=== PATIENT | female | born 1945 | race Caucasian/White ===

== ENCOUNTER 2017-06-07 23:41 | Inpatient (IN) ==
[2017-06-08 00:25] LABS: Basophils # 0.1 K/mcL (0.0-0.2); Basophils % 0.7 %; Eosinophils # 0.2 K/mcL (0.0-0.6); Eosinophils % 2.2 %; Hematocrit 41.6 % (35.3-44.9); Hemoglobin 13.6 g/dL (11.5-15.4); Immature Granulocytes % 0.3 % (0-4); Lymphocytes # 2.2 K/mcL (0.6-4.6); Lymphocytes % 20.5 %; Mean Corpuscular HGB Conc 32.7 g/dL (31.6-35.5); Mean Corpuscular Hemoglobin 29.4 pg (28.0-33.3); Mean Corpuscular Volume 89.8 fL (83.0-100.0); Monocytes # 0.9 K/mcL (0.0-1.3); Monocytes % 8.1 %; Neutrophils # 7.2 K/mcL (1.6-8.9); Platelet Count 250 K/mcL (140-400); Red Blood Count 4.63 M/mcL (3.82-4.97); Red Cell Distribution Width 13.8 % (11.5-14.5); Segmented Neutrophils % 68.2 %
[2017-06-08] MEDS: Nitroglycerin 0.4 MG TAB.SUBL SL PRN ×2 (00:25→00:35)
[2017-06-08] MEDS ORDERED: 0.9 % Sodium Chloride 1,000 ML IVC ONE (00:41)
[2017-06-08 00:50] LABS: Calcium 9.8 mg/dL (8.6-10.3); Potassium 3.7 mEq/L (3.5-5.1)
--- NOTE | 2017-06-08 01:39 | Emergency Department Note ---
START Narrative - START START: I examined this patient and my medical decision-making was reviewed with the Resident Physician. I agree with the documented findings, disposition and treatment plan as described except to the extent set forth below. 72 year old female presents to the ED with complaints of chest pain that starts in her midsternal area and radiates direcetly into her back and that she became diaphoretic with the pain and nauseated. Patient will be evalauted with labs, CTA chest to rule out aortic dissection EKG/CXR and lipase
[2017-06-08 02:09] LABS: Albumin 4.3 g/dL (3.5-5.7); Albumin/Globulin Ratio 1.6 (1.1-2.2); Bilirubin,Direct 0.1 mg/dL (0.0-0.2); Bilirubin,Indirect 0.3 mg/dL (0.0-1.2); Bilirubin,Total 0.4 mg/dL (0.3-1.0); Globulin 2.7 g/dL (2.4-3.5)
--- NOTE | 2017-06-08 02:44 | Emergency Department Note ---
Disposition Clinical Impression: Multifocal pneumonia Chest pain Qualifiers: Chest pain type: unspecified Qualified Code(s): R07.9 - Chest pain, unspecified Disposition: Admitted As Inpatient Condition: Fair Referrals: Genaro Best MD [Primary Care Provider] - Forms: ED Satisfaction Letter Time of Disposition: 03:20 Chest Pain HPI - General Chief Complaint: ED Chest Pain Stated Complaint: CP Time Seen by Provider: 06/08/17 00:04 Source: family Mode of arrival: ambulatory Limitations: no limitations Vital Signs Reviewed: Yes Nursing Notes Reviewed: Yes - History of Present Illness HPI Narrative: Patient is a 72-year-old female who presents to [facility] ED with a chief complaint of chest pain. States her symptoms started around 10: 30 this evening when she was about to lie down. States it was sharp stabbing in nature and went into her back. Admits to nausea, no vomiting. No recent fevers or chills. No cough or cold. No difficulty breathing, abdominal pain, problems with urination or bowel movements. States anywhere she pushes on her abdomen causes pain to radiate into her chest. No prior cardiac history. No history of stress tests or cardiac catheterization. Past medical history significant for hypertension. Pt complaint: chest pain Onset (ago): hour(s) Duration: constant Onset: during rest Pain Location: substernal Severity: severe Severity scale (1-10): 6 Quality: sharp Pain Radiation: none Improves with: nothing Worsens with: nothing Associated symptoms: Reports: nausea. Denies: vomiting, diaphoresis, dyspnea, fever, cough Treatments prior to arrival chest pain: none - Related Data Home Medications Medication Instructions Recorded Confirmed B Complex 1 tab PO DAILY 06/08/17 06/08/17 Calcium Crb,Cit/D3/Min34/Zuleyka 1 tab PO DAILY 06/08/17 06/08/17 [Citracal + Bone Density Tablet] Famotidine [Pepcid] 40 mg PO DAILY 06/08/17 06/08/17 Levothyroxine [Synthroid] 50 mcg PO 0630 06/08/17 06/08/17 Metoprolol [Lopressor] 1 tab PO DAILY 06/08/17 06/08/17 Pravastatin Sodium [Pravachol] 20 mg PO HS 06/08/17 06/08/17 Preservision Areds 2 Softgel 1 tab PO DAILY 06/08/17 06/08/17 Valsartan/Hydrochlorothiazide 25 - 320 mg PO DAILY 06/08/17 06/08/17 [Diovan Hct 160-25 mg Tablet] Vitamin D3 1 tab PO DAILY 06/08/17 06/08/17 Allergies Allergy/AdvReac Type Severity Reaction Status Date / Time ibuprofen [From Motrin] Allergy Hives Verified 06/07/17 23:49 All systems ED: reviewed and negative except as stated. Chest Pain PMH - Past Medical History Medical history: Reports: cancer, GERD, hyperlipidemia, hypertension, osteoporosis, thyroid disease Surgical history: Reports: other (Tonsillectomy) Psychiatric history: Reports: no psych history - Social History Smoking Status: Never smoker Alcohol use: Reports: none Drug use: Reports: none Physical Exam - General Limitations: no limitations General appearance: alert, in no apparent distress - Head Head exam: atraumatic, normocephalic, normal inspection - Eye Eye exam: Present: normal appearance, EOMI - ENT ENT exam: normal exam, normal oropharynx, mucous membranes moist - Neck Neck exam: Present: normal inspection, full ROM, trachea midline - Chest Chest inspection: Present: normal inspection, symmetric chest wall rise - Respiratory Respiratory exam: Present: normal lung sounds bilaterally - Cardiovascular Cardiovascular exam: Present: regular rate, normal rhythm, normal heart sounds - Abdominal Exam Abdominal exam: Present: soft, Non-Tender. Absent: tenderness, distention, guarding, rebound, rigidity - Extremities Exam Extremities exam: Present: normal inspection, full ROM. Absent: tenderness, pedal edema - Back Exam Back exam: Present: normal inspection, full ROM. Absent: tenderness - Neurological Exam Neurological exam: Present: alert, oriented X3 - Psychiatric Psychiatric exam: Present: normal affect, normal mood - Skin Skin exam: Present: warm, dry, intact, normal color Course Course Narrative: Patient seen and examined. Chest pain since earlier today. Cardiopulmonary workup initiated. Due to the severe nature of her pain, we will go ahead and do a CTA of the chest abdomen and pelvis to rule out aortic dissection. - Reevaluation(s) Reevaluation #1: CTA negative for any acute dissection. It does show multifocal pneumonia. We will go ahead and treat with Levaquin. We will admit for chest pain workup. I discussed with hospitalist Dr. Reynaga who has accepted patient for admission. Time: 03:19 Vital Signs Temperature 98.1 F 06/07/17 23:47 Pulse Rate 98 06/07/17 23:47 Respiratory Rate 16 06/07/17 23:47 Blood Pressure 170/94 06/07/17 23:47 O2 Sat by Pulse Oximetry 96 06/07/17 23:47 Temperature 98.1 F 06/07/17 23:47 Pulse Rate 87 06/08/17 01:42 Respiratory Rate 20 06/08/17 01:42 Blood Pressure 142/77 06/08/17 01:42 O2 Sat by Pulse Oximetry 99 06/08/17 01:42 Oxygen Delivery Oxygen Delivery Nasal Cannula Chest Pain - Medical Records Medical records reviewed: Yes I reviewed the patient's medical records. - Lab Data Lab results reviewed: Yes I reviewed the patient's lab results. Result diagrams: 06/08/17 00:18 06/08/17 00:18 Lab Results 06/08/17 06/08/17 06/08/17 Range/Units 00:18 00:18 00:18 WBC 10.5 (4.3-11.1) K/mcL RBC 4.63 (3.82-4.97) M/mcL Hgb 13.6 (11.5-15.4) g/dL Hct 41.6 (35.3-44.9) % MCV 89.8 (83.0-100.0) fL MCH 29.4 (28.0-33.3) pg MCHC 32.7 (31.6-35.5) g/dL RDW 13.8 (11.5-14.5) % Plt Count 250 (140-400) K/mcL MPV 10.0 (9.4-12.4) fL Immature Gran % 0.3 (0-4) % Seg Neutrophils % 68.2 % Lymphocytes % 20.5 % Monocytes % 8.1 % Eosinophils % 2.2 % Basophils % 0.7 % Neutrophils # 7.2 (1.6-8.9) K/mcL Lymphocytes # 2.2 (0.6-4.6) K/mcL Monocytes # 0.9 (0.0-1.3) K/mcL Eosinophils # 0.2 (0.0-0.6) K/mcL Basophils # 0.1 (0.0-0.2) K/mcL Sodium 141 (136-145) mEq/L Potassium 3.7 (3.5-5.1) mEq/L Chloride 105 (98-107) mEq/L Carbon Dioxide 29 (23-29) mEq/L BUN 34 H (8-23) mg/dL Creatinine 1.23 H (0.60-1.20) mg/dL Est GFR ( Amer) 52 L (> 60) Est GFR (Non-Af Amer) 43 L (> 60) BUN/Creatinine Ratio 28 H (6-26) Glucose 132 H (70-105) mg/dL Calculated Osmolality 301 H (280-300) Calcium 9.8 (8.6-10.3) mg/dL Total Bilirubin (0.3-1.0) mg/dL Direct Bilirubin (0.0-0.2) mg/dL Indirect Bilirubin (0.0-1.2) mg/dL AST (13-39) Units/L ALT (7-52) Units/L Alkaline Phosphatase (34-104) Units/L Troponin I < 0.03 (< 0.04) ng/mL Serum Total Protein (6.4-8.9) g/dL Albumin (3.5-5.7) g/dL Globulin (2.4-3.5) g/dL Albumin/Globulin Ratio (1.1-2.2) Lipase (11-82) Units/L //18 Range/Units 00:18 WBC (4.3-11.1) K/mcL RBC (3.82-4.97) M/mcL Hgb (11.5-15.4) g/dL Hct (35.3-44.9) % MCV (83.0-100.0) fL MCH (28.0-33.3) pg MCHC (31.6-35.5) g/dL RDW (11.5-14.5) % Plt Count (140-400) K/mcL MPV (9.4-12.4) fL Immature Gran % (0-4) % Seg Neutrophils % % Lymphocytes % % Monocytes % % Eosinophils % % Basophils % % Neutrophils # (1.6-8.9) K/mcL Lymphocytes # (0.6-4.6) K/mcL Monocytes # (0.0-1.3) K/mcL Eosinophils # (0.0-0.6) K/mcL Basophils # (0.0-0.2) K/mcL Sodium (136-145) mEq/L Potassium (3.5-5.1) mEq/L Chloride (98-107) mEq/L Carbon Dioxide (23-29) mEq/L BUN (8-23) mg/dL Creatinine (0.60-1.20) mg/dL Est GFR ( Amer) (> 60) Est GFR (Non-Af Amer) (> 60) BUN/Creatinine Ratio (6-26) Glucose (70-105) mg/dL Calculated Osmolality (280-300) Calcium (8.6-10.3) mg/dL Total Bilirubin 0.4 (0.3-1.0) mg/dL Direct Bilirubin 0.1 (0.0-0.2) mg/dL Indirect Bilirubin 0.3 (0.0-1.2) mg/dL AST 22 (13-39) Units/L ALT 19 (7-52) Units/L Alkaline Phosphatase 77 (34-104) Units/L Troponin I (< 0.04) ng/mL Serum Total Protein 7.0 (6.4-8.9) g/dL Albumin 4.3 (3.5-5.7) g/dL Globulin 2.7 (2.4-3.5) g/dL Albumin/Globulin Ratio 1.6 (1.1-2.2) Lipase 24 (11-82) Units/L - Radiology Data Radiology results reviewed: Yes I reviewed the patient's radiology results. Chest X-Ray 06/07/17 23:50 IMPRESSION: Cardiomegaly with bibasilar airspace disease which could represent atelectasis or pneumonia. Dependent edema is felt less likely. D/ / Ravin Tirado MD / Ravin Tirado MD Interpreting Provider: Ravin Tirado MD Abdomen/Pelvis CTA 06/08/17 00:12 IMPRESSION: No acute thoracic or abdominal aortic aneurysm or dissection is identified. Multifocal infiltrates are seen within the lungs, predominantly involving the right middle lobe, lingula and bilateral lower lobes concerning for pneumonia or aspiration. No reactive effusion. No lung mass or mediastinal lymphadenopathy. No acute fracture seen in the thoracic or lumbar spine. Multilevel degenerative changes. No acute process seen in the abdomen or pelvis. Small bowel feces sign seen in the distal ileum which may be related to delayed transit. No ileus or obstruction. D/ / Ravin Tirado MD / Ravin Tirado MD Interpreting Provider: Ravin Tirado MD Chest CTA 06/08/17 00:12 IMPRESSION: No acute thoracic or abdominal aortic aneurysm or dissection is identified. Multifocal infiltrates are seen within the lungs, predominantly involving the right middle lobe, lingula and bilateral lower lobes concerning for pneumonia or aspiration. No reactive effusion. No lung mass or mediastinal lymphadenopathy. No acute fracture seen in the thoracic or lumbar spine. Multilevel degenerative changes. No acute process seen in the abdomen or pelvis. Small bowel feces sign seen in the distal ileum which may be related to delayed transit. No ileus or obstruction. D/ / Ravin Tirado MD / Ravin Tirado MD Interpreting Provider: Ravin Tirado MD - EKG Data EKG attestation: Yes I reviewed and interpreted this EKG. EKG results narrative: EKG done at 2351 shows normal sinus rhythm with a rate of 89 beats per minute. No acute ST elevation or depression. Left axis deviation. Heart Score - Score History: Slightly Suspicious EKG: Non Specific repolarisation Disturbance Age: Greater than 65 Risk Factors: 1-2 risk factors Troponin: Less than normal limit HEART Score Total: 4
[2017-06-08] MEDS ORDERED: Levofloxacin 750 MG/150 ML 750 MG/150 ML BAG IVPB ONE (03:10)
[2017-06-08] MEDS ORDERED: Naloxone 0.4 MG/ML INJ IVP PRN (05:15)
--- NOTE | 2017-06-08 05:28 | Internal Med History&Physical ---
Date of Encounter: 06/08/17 Time of Encounter: 03:20 Assessment and Plan (1) Multifocal pneumonia Current visit: Yes Status: Acute 1. Will order STAT blood cultures as they were not done in ER prior to antibiotics dosing. 2. Will order sputum culture and gram stain if able to collect proper sample. 3. Will test for Influenza. 4. Will place on IV Vancomycin and Levaquin. 5. Oxygen as needed for support. (2) Chest pain Current visit: Yes Status: Acute 1. Likely due to pneumonia -- pleurisy. 2. Will treat with Tylenol and/or Vicodin as needed. Patient unable to take NSAIDS due to ibuprofen allergy. 3. Will trend troponins, EKG's, and order ECHO given murmur on auscultation. Qualifiers: Chest pain type: chest pain on breathing Qualified Code(s): R07.1 - Chest pain on breathing; R07.81 - Pleurodynia (3) DVT prophylaxis Current visit: Yes Status: Acute 1. Heparin SQ. Internal Medicine - H&P: HPI Chief complaint: chest pain; difficulty breathing Admitted From: Emergency Dept Plans for Post Hospital Care: Home History of present illness: Ms. Crow is a 72 year old female who presents to the ER tonight with acute onset of chest pain with splinting to her back. She was getting ready for bed and had sudden onset chest pain. She had a difficult time catching her breath and had increasing chest pain with deep inspiration. Symptoms started about 10: 30 in the evening tonight. As such, she came to the ER for evaluation. In the ER, she had a workup including CT angiogram of the chest, abdomen, and pelvis to rule out pulmonary emboli, aortic dissection and/or aneurysm. CT was negative for all the above. However, it did show multifocal pneumonia. She continued to have significant pleuritic-type chest pain and splinting. She was therefore admitted to hospitalist service for multifocal pneumonia. She was given a dose of Levaquin and sent to the floor. Upon my assessment of the patient, she is having some pleuritic-type chest pain , splinting with deep inspiration, and complaining of some mild shortness of breath. She denies any fevers, chills, or night sweats. She denies any cough, chest congestion, headache, musculoskeletal or body aches. Prior to [facility], she had no symptoms and was feeling well. She had sudden onset of chest pain and pleurisy at 10:30 last night/tonight. She denies any ill contacts of family or friends with pneumonia or influenza. Unfortunately, blood cultures had not yet been drawn before she received antibiotics in the ER. Nonetheless, I will order stat blood cultures and try to obtain sputum culture if she is able to produce any productive sputum. Past Med Surg Social Fam HX - Past Medical History Attestation: Yes The following information was validated with the patient. Source: patient, old records reviewed, obtained from family Medical history: GERD, hyperlipidemia, hypertension, osteoporosis, thyroid disease Psychiatric history: no psych history - Past Surgical History Surgical History: no surgical history - Social History Smoking Status: Never smoker Smokeless Tobacco Status: No Alcohol use: none Drug use: none Current living situation: Home - Independent Activity Level: Independent ambulation Recent Out of Country Travel Within the Last 8 Weeks: No - Family History Mother Adopted: [place]: SKYLAR Age at : 96 Cause of : AGE Hx Family Cardiac Disorders: No Hx Family Respiratory Disorders: No Hx Family Cancer: Yes (BREAST) Hx Family GI Disorders: No Hx Family Genitourinary Disorders: No Hx Family Endocrine Disorder: No Hx Family Musculoskeletal Disorders: No Hx Family Neuromuscular Disorders: No Hx Family Neurologic Disorders: No Hx Family HEENT Disorders: No Hx Family Autoimmune Disorders: No Hx Family Reproductive Disorders: No Hx Family Psychosocial Disorders: No Hx Family Medical Disorders: No Father Living Status: Hx Family Cancer: Yes Internal Medicine - H&P: Meds B Complex 1 tab PO DAILY 06/08/17 [History] Calcium Crb,Cit/D3/Min34/Zuleyka [Citracal + Bone Density Tablet] 1 tab PO DAILY 06/08/17 [History] Famotidine [Pepcid] 40 mg PO DAILY 06/08/17 [History] Levothyroxine [Synthroid] 50 mcg PO 0630 06/08/17 [History] Metoprolol [Lopressor] 1 tab PO DAILY 06/08/17 [History] Pravastatin Sodium [Pravachol] 20 mg PO HS 06/08/17 [History] Preservision Areds 2 Softgel 1 tab PO DAILY 06/08/17 [History] Valsartan/Hydrochlorothiazide [Diovan Hct 160-25 mg Tablet] 25 - 320 mg PO DAILY 06/08/17 [History] Vitamin D3 1 tab PO DAILY 06/08/17 [History] 3 Allergy/AdvReac Type Severity Reaction Status Date / Time ibuprofen [From Motrin] Allergy Hives Verified 06/07/17 23:49 - Constitutional Constitutional: no chills, no fever(s), no night sweats - EENT Eyes: no blurry vision, no change in vision Ears: no ear pain, no tinnitus Nose, mouth and throat: no nasal congestion, no sinus pressure, no sore throat - Cardiovascular Cardiovascular ROS IM: chest pain, dyspnea, no lightheadedness, no paroxysmal nocturnal dyspnea, no syncope - Respiratory Respiratory: dyspnea, pain on inspiration, pain with cough, no cough, no hemoptysis - Gastrointestinal Gastrointestinal: no abdominal pain, no diarrhea, no hematemesis, no hematochezia, no melena, no nausea, no vomiting - Genitourinary Genitourinary: no dysuria, no flank pain, no hematuria - Musculoskeletal Musculoskeletal ROS IM: no arthralgias, no back pain, no muscle cramps, no muscle weakness, no myalgias - Integumentary Integumentary IM: no rash, no jaundice - Neurological Neurological ROS: no dizziness, no focal weakness, no frequent falls, no headache(s) - Psychiatric Psychiatric: no anxiety, no depression - Endocrine Endocrine IM: no polydipsia, no polyuria - Hematologic/Lymphatic Hematologic/Lymphatic: no easy bruising, no lymphadenopathy - Allergic/Immunologic Allergic/Immunologic: no wheezing, no GI upset with certain foods - Constitutional Vitals: Temp Pulse Resp BP Pulse Ox 99.3 F 96 16 155/77 97 06/08/17 04:09 06/08/17 04:09 06/08/17 04:09 06/08/17 04:09 06/08/17 04:09 General appearance: Present: cooperative, mild distress (due to pleurisy; splinting), A&O X 3, pleasant - Head Head exam: Present: atraumatic, normal inspection - Eye Eye exam: Present: EOMI, normal appearance, PERRL. Absent: scleral icterus Pupils: Present: normal accommodation - ENT ENT exam: Present: mucous membranes dry, normal exam, normal oropharynx - Neck Neck exam general surgery: Present: full ROM, supple. Absent: lymphadenopathy, tenderness, nuchal rigidity - Respiratory Respiratory exam: Present: accessory muscle use, rales (focal in the right base ; + splinting; + egophony), respiratory distress (mild), tachypnea. Absent: chest wall tenderness, prolonged expiratory phase, rhonchi, wheezes - Cardiovascular Cardiovascular exam: Present: RRR, +S1, +S2, systolic murmur (grade 2-3). Absent: diastolic murmur - GI/Abdominal GI/Abdominal exam: Present: normal bowel sounds, soft, no peritoneal signs. Absent: guarding, hepatomegaly, rebound, splenomegaly, tenderness - Extremities Exam Extremities exam: Present: full ROM, normal capillary refill, warm, radial pulses palpable and symmetrical. Absent: calf tenderness, pedal edema, tenderness - Back Exam Back exam: Absent: CVA tenderness (L), CVA tenderness (R) - Neurological Exam Neurological exam: Present: alert, CN II-XII intact, oriented X3, no focal deficits, strengths equal and symetr throughout - Psychiatric Psychiatric exam: Present: normal affect, normal mood - Skin Skin exam: Present: dry, warm. Absent: rash Internal Med - H&P Results - Labs CBC & Chem 7: 06/08/17 00:18 06/08/17 00:18 - EKG Data -: EKG Interpreted by Myself EKG shows normal: sinus rhythm - EKG Data EKG comments: 06/08/17 05:32 NSR; LVH findings - Diagnostic Studies CT scan - chest Status: image reviewed by me (multifocal infiltrates)
[2017-06-08] MEDS: 0.9 % Sodium Chloride 1,000 ML IVC SCH ×2 (05:56→14:56)
[2017-06-08] MEDS: Acetaminophen 325 MG TABLET PO PRN (05:56)
[2017-06-08] MEDS: *HR* Heparin 5,000 UNIT/ML VIAL SQ SCH ×2 (05:57→17:55)
[2017-06-08 07:20] LABS: Influenza A PCR Negative (Negative); Influenza B PCR Negative (Negative); Resp. Syncytial Virus PCR Negative (Negative)
[2017-06-08] MEDS ORDERED: Famotidine 20 MG TABLET PO SCH (09:00)
[2017-06-08] MEDS: *HR* HYDROcodone/Acet 5/325 mg TABLET PO PRN ×2 (14:55→21:09)
--- NOTE | 2017-06-08 15:44 | Event Note ---
Date of Encounter: 06/08/17 Time of Encounter: 15:41 Patient is complaining of some chest wall pain when she coughs or takes a deep breath. She states she is not able to move without having increased pain. I told her that she really needs to get up and sit in a chair and move around some or she her pneumonia would worsen. The nurses are having difficulty getting her up even to sit on the side of the bed. Will provide an incentive spirometer and instructed her on its use. Temp 98.7 and 99.8 today. Her blood pressure was a little elevated this afternoon but was normal this morning. She is on 2 L nasal cannula satting between 96 and 97%. Will need a lot of encouragement to move and deep breathe.
[2017-06-09 05:23] LABS: Alanine Aminotransferase 12 Units/L (7-52); Albumin 3.5 g/dL (3.5-5.7); Albumin/Globulin Ratio 1.3 (1.1-2.2); Alkaline Phosphatase 51 Units/L (34-104); Aspartate Amino Transferase 13 Units/L (13-39); BUN/Creatinine Ratio 18 (6-26); Bilirubin,Total 0.8 mg/dL (0.3-1.0); Blood Urea Nitrogen 15 mg/dL (8-23); Calcium 8.6 mg/dL (8.6-10.3); Carbon Dioxide 26 mEq/L (23-29); Chloride 107 mEq/L (98-107); Globulin 2.7 g/dL (2.4-3.5); Glucose 112 mg/dL (70-105); Magnesium 1.9 mg/dL (1.6-2.6); Osmolality,Calculated 290 (280-300); Potassium 3.1 mEq/L (3.5-5.1); Sodium 139 mEq/L (136-145); Total Protein 6.2 g/dL (6.4-8.9); eGFR For Non-African Americans > 60 (> 60)
[2017-06-09] MEDS: *HR* Heparin 5,000 UNIT/ML VIAL SQ SCH ×2 (05:25→16:46)
[2017-06-09 05:31] LABS: Activated Partial Thrombo Time 26.5 Seconds (26.0-36.0); INR 1.3; Prothrombin Time 13.7 Seconds (9.4-12.1)
[2017-06-09 05:39] LABS: Basophils % 0.4 %; Eosinophils % 0.4 %; Hematocrit 33.1 % (35.3-44.9); Immature Granulocytes % 0.2 % (0-4); Lymphocytes # 1.6 K/mcL (0.6-4.6); Mean Corpuscular HGB Conc 32.6 g/dL (31.6-35.5); Mean Corpuscular Hemoglobin 29.1 pg (28.0-33.3); Mean Corpuscular Volume 89.2 fL (83.0-100.0); Mean Platelet Volume 10.5 fL (9.4-12.4); Monocytes % 11.3 %; Neutrophils # 6.5 K/mcL (1.6-8.9); Platelet Count 171 K/mcL (140-400); Red Blood Count 3.71 M/mcL (3.82-4.97); Red Cell Distribution Width 14.2 % (11.5-14.5); Segmented Neutrophils % 70.7 %
[2017-06-09 05:43] LABS: Hemoglobin 10.8 g/dL (11.5-15.4)
[2017-06-09] MEDS: Famotidine 20 MG TABLET PO SCH (08:06)
[2017-06-09] MEDS: *HR* HYDROcodone/Acet 5/325 mg TABLET PO PRN ×2 (08:06→21:40)
[2017-06-09] MEDS ORDERED: Aminoglycoside Consult 1 EACH MC ONE (08:28)
--- NOTE | 2017-06-09 10:57 | Internal Med Progress Note ---
Date of Encounter: 06/09/17 Time of Encounter: 10:54 - Assessment and plan (1) Multifocal pneumonia Current Visit: Yes Status: Acute Assessment and plan: Admitted with Pleuritic chest pain. CT chest revealed multifocal pneumonia. Being treated with the Levaquin and vancomycin. So far blood cultures are negative. Since it is community-acquired pneumonia will de-escalate antibiotic. Discontinued vancomycin. She is feeling better. WBC is normal. (2) Pleuritic chest pain Current Visit: Yes Status: Acute Assessment and plan: She had anterior chest pain with radiation to back. Also had some discomfort in the jaw. It is somewhat concerning for cardiac chest pain. Had a troponin 3 which is negative. Had echocardiogram which shows normal ejection fraction. Advised patient to have outpatient stress test because of the risk factors. She does have chest pain this morning which is only with deep breathing in anterior chest. (3) Anemia Current Visit: Yes Status: Acute Assessment and plan: On admission her hemoglobin was 13.6 dropped to 10.8. No GI bleed. Likely due to hemodilution from IV fluids. But she will need follow-up on the hemoglobin S outpatient and appropriate investigation as needed. Qualifiers: Anemia type: unspecified type Qualified Code(s): D64.9 - Anemia, unspecified (4) Hypokalemia Current Visit: Yes Status: Acute Assessment and plan: Her potassium is 3.1. Will replace and trend. - Time Spent With Patient Greater than 35 minutes - Subjective Interval history: She was admitted with them anterior chest pain with radiating to back as well as had the discomfort in the [place]. She had shortness of breath but denies any cough or fever. Evaluation in the emergency room revealed a multifocal infiltrate on the CTA chest. But unusually she did not have cough or fever. Her flu was negative. Troponin 3 is negative. Echocardiogram shows normal ejection fraction. She was started on Levaquin and vancomycin. She is feeling better this morning. Still has some component of anterior chest pain mainly with deep breathing. No fever spike. She has some leg swelling. She has received IV fluids. Likely due to that. She had mild impaired renal function with the urine of 34 and creatinine of 1.2 which is improved to 15/0.8. On admission hemoglobin was 13.6 decreased to 10.8 likely due to hemodilution from the IV fluids. That need follow-up. She is a nonsmoker. - Constitutional Vitals: Temp Pulse Resp BP Pulse Ox 98.7 F 91 18 120/66 92 06/09/17 07:13 06/09/17 07:13 06/09/17 07:13 06/09/17 07:13 06/09/17 07:13 General appearance: Present: cooperative, mild distress (due to pleurisy; splinting), A&O X 3, pleasant Exam: Middle-aged female, no distress at rest no dyspnea orthopnea at rest She has pallor, on cyanosis or jaundice. Neck without any cervical or supraclavicular lymphadenopathy. CVS S1-S2 regular. No murmur. RS decreased entry bilaterally right basal crepitation appreciated. Abdomen no distention. Soft. Nontender. No hepatomegaly. Extremities +1 leg edema. No calf tenderness or asymmetry. Hands, no clubbing or tremors. 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 No confusion. No focal neurological deficit. Normal speech. Internal Medicine: Result - Labs CBC & Chem 7: 06/09/17 03:52 06/09/17 03:52 Labs: Short CBC 06/09/17 Range/Units 03:52 WBC 9.2 (4.3-11.1) K/mcL Hgb 10.8 L D (11.5-15.4) g/dL Hct 33.1 L (35.3-44.9) % Plt Count 171 (140-400) K/mcL Neutrophils # 6.5 (1.6-8.9) K/mcL BMP 06/09/17 03:52 Sodium 139 Potassium 3.1 L Chloride 107 Carbon Dioxide 26 BUN 15 Creatinine 0.85 Glucose 112 H Calcium 8.6 Cardiac Enzymes 06/08/17 06/08/17 Range/Units 11:08 17:34 Troponin I < 0.03 < 0.03 (< 0.04) ng/mL Liver Function 06/09/17 Range/Units 03:52 Total Bilirubin 0.8 (0.3-1.0) mg/dL AST 13 (13-39) Units/L ALT 12 (7-52) Units/L Alkaline Phosphatase 51 (34-104) Units/L Albumin 3.5 (3.5-5.7) g/dL - ABG Interpretation ABG results: PT/INR, D-dimer PT 13.7 Seconds (9.4-12.1) H 06/09/17 03:52 Consult Discharge Plan - Plan Referrals: Genaro Best MD [Primary Care Provider] -
[2017-06-09] MEDS: Levofloxacin 750 MG/150 ML 750 MG/150 ML BAG IVPB SCH (16:47)
[2017-06-10] MEDS ORDERED: Levofloxacin 750 MG/150 ML 750 MG/150 ML BAG IVPB SCH (03:00)
[2017-06-10] MEDS: *HR* Heparin 5,000 UNIT/ML VIAL SQ SCH ×2 (05:46→17:30)
[2017-06-10] MEDS: Famotidine 20 MG TABLET PO SCH (08:10)
[2017-06-10] MEDS: Acetaminophen 325 MG TABLET PO PRN ×2 (08:10→19:55)
[2017-06-10] MEDS ORDERED: Ondansetron 4 MG/2 ML VIAL IVP PRN (11:46)
--- NOTE | 2017-06-10 12:42 | Internal Med Progress Note ---
Date of Encounter: 06/10/17 Time of Encounter: 10:40 - Assessment and plan (1) Anemia Current Visit: Yes Status: Acute Assessment and plan: On admission her hemoglobin was 13.6 dropped to 10.8. No GI bleed. Likely due to hemodilution from IV fluids. But she will need follow-up on the hemoglobin S outpatient and appropriate investigation as needed. We will reassess labs in the morning. Qualifiers: Anemia type: unspecified type Qualified Code(s): D64.9 - Anemia, unspecified (2) Hypokalemia Current Visit: Yes Status: Acute (3) Multifocal pneumonia Current Visit: Yes Status: Acute (4) Pleuritic chest pain Current Visit: Yes Status: Acute Assessment and plan: Improving. Rates 2/10 today. States only worse with deep inspiration and improved since admission. Troponins negative 3. EKG normal sinus rhythm without ST changes. Echocardiogram showed preserved ejection fraction with mild LVEDD and trivial AR. Chest x-ray showed pneumonia. Chest CTA showed multifocal infiltrates, predominantly in the right middle lobe, lingula, and bilateral lower lobes. We will continue to treat with IV antibiotics, Lidoderm patch to back, patient has [place] for pain. (5) DVT prophylaxis Current Visit: Yes Status: Acute Assessment and plan: Heparin subcutaneous. - Time Spent With Patient less than 15 minutes - Subjective Interval history: Patient was seen and assessed at bedside at 10:40 AM. Patient reports pain in mid back between scapula. Tender to palpation, muscles very tight and tense. She reports that her chest pain has improved significantly and now it is 2/10 and only worse when she takes a deep inspiration. Patient is requiring supplemental oxygen, denies use at home. Patient denies headache, blurred vision, nausea, vomiting, diarrhea. She denies any abdominal pain dizziness or neck pain. Patient is agreeable to spending the night again tonight since she lives at home alone. We will reevaluate condition and possibility for discharge tomorrow. - Constitutional Vitals: Temp Pulse Resp BP Pulse Ox 98.2 F 70 17 138/66 92 06/10/17 11:35 06/10/17 11:35 06/10/17 11:35 06/10/17 11:35 06/10/17 11:35 General appearance: Present: cooperative, mild distress (due to pleurisy; splinting), A&O X 3, pleasant, no acute distress, answers questions appropriately - Head Head exam: Present: atraumatic, normal inspection, normocephalic - Eye Eye exam: Present: normal appearance, conjuntiva pink, sclera anicteric - Neck Neck exam general surgery: Present: normal inspection, supple, trachea midline. Absent: lymphadenopathy, tenderness - Respiratory Respiratory exam: Present: CTAB. Absent: accessory muscle use, rales, rhonchi, wheezes - Cardiovascular Cardiovascular exam: Present: RRR, +S1, +S2. Absent: diastolic murmur, gallop, rubs, systolic murmur - GI/Abdominal GI/Abdominal exam: Present: normal bowel sounds, soft. Absent: distended, hepatomegaly, tenderness - Extremities Exam Extremities exam: Present: normal capillary refill, normal inspection, warm, radial pulses palpable and symmetrical. Absent: calf tenderness, cyanotic, pedal edema, tenderness - Neurological Exam Neurological exam: Present: alert, oriented X3, no focal deficits. Absent: facial droop, speech deficit - Skin Skin exam: Present: dry, intact, pallor, warm. Absent: rash Internal Medicine: Result - Labs CBC & Chem 7: 06/09/17 03:52 06/10/17 04:12 Labs: BMP 06/10/17 04:12 Potassium 3.8 - ABG Interpretation ABG results: PT/INR, D-dimer PT 13.7 Seconds (9.4-12.1) H 06/09/17 03:52 Consult Discharge Plan - Plan Referrals: Genaro Best MD [Primary Care Provider] -
[2017-06-10] MEDS: Levofloxacin 750 MG/150 ML 750 MG/150 ML BAG IVPB SCH (17:30)
--- NOTE | 2017-06-10 18:24 | Electrocardiograph Report ---
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
--- NOTE | 2017-06-10 18:30 | Electrocardiograph Report ---
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
[2017-06-11] MEDS: *HR* Heparin 5,000 UNIT/ML VIAL SQ SCH ×2 (05:21→17:23)
[2017-06-11] MEDS: *HR* HYDROcodone/Acet 5/325 mg TABLET PO PRN ×3 (05:26→21:28)
[2017-06-11] MEDS: Famotidine 20 MG TABLET PO SCH (08:14)
[2017-06-11 13:03] LABS: BUN/Creatinine Ratio 18 (6-26); Blood Urea Nitrogen 17 mg/dL (8-23); Calcium 8.8 mg/dL (8.6-10.3); Carbon Dioxide 22 mEq/L (23-29); Chloride 107 mEq/L (98-107); Glucose 126 mg/dL (70-105); Osmolality,Calculated 285 (280-300); Potassium 4.1 mEq/L (3.5-5.1); Sodium 136 mEq/L (136-145); eGFR For Non-African Americans 59 (> 60)
[2017-06-11 13:48] LABS: Basophils # 0.1 K/mcL (0.0-0.2); Basophils % 0.5 %; Eosinophils # 0.3 K/mcL (0.0-0.6); Eosinophils % 3.7 %; Hematocrit 36.5 % (35.3-44.9); Hemoglobin 12.1 g/dL (11.5-15.4); Lymphocytes # 1.3 K/mcL (0.6-4.6); Lymphocytes % 14.4 %; Mean Corpuscular HGB Conc 33.2 g/dL (31.6-35.5); Mean Corpuscular Hemoglobin 28.9 pg (28.0-33.3); Mean Corpuscular Volume 87.1 fL (83.0-100.0); Monocytes % 10.3 %; Neutrophils # 6.5 K/mcL (1.6-8.9); Platelet Count 226 K/mcL (140-400); Red Blood Count 4.19 M/mcL (3.82-4.97); Red Cell Distribution Width 13.5 % (11.5-14.5); Segmented Neutrophils % 70.1 %
[2017-06-11] MEDS: Acetaminophen 325 MG TABLET PO PRN (14:11)
[2017-06-11] MEDS ORDERED: traMADol 50 MG TABLET PO PRN (16:06)
[2017-06-11] MEDS: Levofloxacin 750 MG/150 ML 750 MG/150 ML BAG IVPB SCH (17:23)
--- NOTE | 2017-06-11 17:30 | Internal Med Progress Note ---
Date of Encounter: 06/11/17 Time of Encounter: 09:00 - Assessment and plan (1) Anemia Current Visit: Yes Status: Resolved Assessment and plan: Resolved. Hemoglobin 12.1. Qualifiers: Anemia type: unspecified type Qualified Code(s): D64.9 - Anemia, unspecified (2) Hypokalemia Current Visit: Yes Status: Resolved Assessment and plan: Her potassium is 4.1. Resolved (3) Multifocal pneumonia Current Visit: Yes Status: Acute Assessment and plan: Community-acquired pneumonia. CT chest revealed multifocal pneumonia. Being treated with the Levaquin 750 mg IV daily and will restart vancomycin 1 g daily due to worsening chest x-ray results.. Blood cultures are negative. Patient has no leukocytosis, tachycardia, fever. Patient did report left anterior inferior rib pain after her echocardiogram. 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 Repeat chest x-ray was performed, showed worsening aeration in lung bases with small pleural effusion. Findings likely reflect pulmonary edema versus pneumonia. There is no osseous abnormality seen. Findings have worsened from 3 days ago. (4) Pleuritic chest pain Current Visit: Yes Status: Resolved Assessment and plan: Resolved. Back pain has resolved with Lidoderm patch and by mouth pain medication. Patient now has rib pain from echocardiogram. Continue pain medication as written. (5) DVT prophylaxis Current Visit: Yes Status: Acute Assessment and plan: Heparin subcutaneous BID - Time Spent With Patient less than 15 minutes - Subjective Interval history: Patient was seen and assessed at bedside at 0900 AM. Patient reports pain to left anterior/inferior ribs since after echo. Patient is still requiring supplemental oxygen, denies use at home. Patient denies headache, blurred vision, nausea, vomiting, diarrhea. She denies any abdominal pain dizziness or neck pain. Patient requires another night due to hypoxia and acute respiratory failure, as well as left anterior chest pain. - Constitutional Vitals: Temp Pulse Resp BP Pulse Ox 98.4 F 77 17 148/76 87 06/11/17 15:58 06/11/17 15:58 06/11/17 15:58 06/11/17 15:58 06/11/17 15:58 General appearance: Present: cooperative, mild distress (due to pleurisy; splinting), A&O X 3, pleasant, no acute distress, answers questions appropriately - Head Head exam: Present: atraumatic, normal inspection, normocephalic - Eye Eye exam: Present: normal appearance, conjuntiva pink, sclera anicteric - Neck Neck exam general surgery: Present: supple, trachea midline. Absent: lymphadenopathy, tenderness - Respiratory Respiratory exam: Present: chest wall tenderness, CTAB. Absent: accessory muscle use, decreased breath sounds, rales, respiratory distress, rhonchi, wheezes - Cardiovascular Cardiovascular exam: Present: RRR, +S1, +S2. Absent: diastolic murmur, gallop, rubs, systolic murmur - GI/Abdominal GI/Abdominal exam: Present: normal bowel sounds, soft. Absent: distended, hepatomegaly, tenderness - Extremities Exam Extremities exam: Present: normal capillary refill, normal inspection, warm, radial pulses palpable and symmetrical. Absent: calf tenderness, cyanotic, pedal edema, tenderness - Neurological Exam Neurological exam: Present: alert, oriented X3, no focal deficits. Absent: facial droop, speech deficit - Skin Skin exam: Present: dry, intact, normal color, warm. Absent: rash Internal Medicine: Result - Labs CBC & Chem 7: 06/11/17 13:40 06/11/17 11:56 Labs: Short CBC 06/11/17 Range/Units 13:40 WBC 9.3 (4.3-11.1) K/mcL Hgb 12.1 (11.5-15.4) g/dL Hct 36.5 (35.3-44.9) % Plt Count 226 (140-400) K/mcL Neutrophils # 6.5 (1.6-8.9) K/mcL BMP 06/11/17 11:56 Sodium 136 Potassium 4.1 Chloride 107 Carbon Dioxide 22 L BUN 17 Creatinine 0.93 Glucose 126 H Calcium 8.8 - ABG Interpretation ABG results: PT/INR, D-dimer PT 13.7 Seconds (9.4-12.1) H 06/09/17 03:52 - Impressions Impressions Chest X-Ray 06/11/17 16:10 IMPRESSION: Worsening aeration lung bases with small pleural effusions. Findings likely reflect pulmonary edema versus pneumonia. D/ / 06/11/2017 17:04:58 Jason Moore MD / [email or web address] Interpreting Provider: Jason Moore MD Consult Discharge Plan - Plan Referrals: Genaro Best MD [Primary Care Provider] -
[2017-06-11] MEDS: Aspirin Enteric Coated 325 MG Tablet PO SCH (19:37)
[2017-06-11] MEDS ORDERED: Heparin 25,000 UNIT/500 ML D5W 25,000 UNIT/500 ML BAG IVC SCH (19:45)
[2017-06-11] MEDS: Ipratropium/Albuterol Neb 3 ML IH SCH ×2 (19:58→23:45)
[2017-06-12] MEDS: *HR* HYDROcodone/Acet 5/325 mg TABLET PO PRN ×2 (03:36→09:26)
[2017-06-12] MEDS: Ipratropium/Albuterol Neb 3 ML IH SCH ×3 (03:55→11:29)
[2017-06-12 04:25] LABS: Basophils % 0.4 %; Eosinophils # 0.2 K/mcL (0.0-0.6); Eosinophils % 1.6 %; Hematocrit 34.2 % (35.3-44.9); Hemoglobin 11.4 g/dL (11.5-15.4); Immature Granulocytes % 0.4 % (0-4); Lymphocytes # 1.2 K/mcL (0.6-4.6); Lymphocytes % 12.8 %; Mean Corpuscular HGB Conc 33.3 g/dL (31.6-35.5); Mean Corpuscular Hemoglobin 29.4 pg (28.0-33.3); Mean Corpuscular Volume 88.1 fL (83.0-100.0); Mean Platelet Volume 10.3 fL (9.4-12.4); Monocytes # 0.9 K/mcL (0.0-1.3); Monocytes % 9.9 %; Neutrophils # 7.1 K/mcL (1.6-8.9); Platelet Count 238 K/mcL (140-400); Red Blood Count 3.88 M/mcL (3.82-4.97); Red Cell Distribution Width 13.7 % (11.5-14.5); Segmented Neutrophils % 74.9 %
[2017-06-12 04:41] LABS: BUN/Creatinine Ratio 17 (6-26); Blood Urea Nitrogen 15 mg/dL (8-23); Carbon Dioxide 22 mEq/L (23-29); Chloride 104 mEq/L (98-107); Glucose 126 mg/dL (70-105); Osmolality,Calculated 286 (280-300); Potassium 3.7 mEq/L (3.5-5.1); Sodium 137 mEq/L (136-145); eGFR For Non-African Americans > 60 (> 60)
[2017-06-12] MEDS: Aspirin Enteric Coated 325 MG Tablet PO SCH (09:26)
[2017-06-12] MEDS: Famotidine 20 MG TABLET PO SCH (09:26)
[2017-06-12 10:44] VITALS: BP 126/73
--- NOTE | 2017-06-12 11:42 | Cardiology Consult Note ---
<Ayah Carmen Fabrizio - Last Filed: 06/12/17 11:58> Date of Encounter: 06/12/17 Time of Encounter: 10:30 Assessment and Plan (1) Elevated troponin Status: Acute Initially, troponin negative x4. Troponin rechecked yesterday evening (unclear) and was 0.60, now 0.28. Suspect demand ischemia, however ACS cannot be ruled out. BP has peaked at 192/97. Low grade temp. CXR yesterday demonstrated worsening aeration in the lung bases, pulmonary edema vs. PNA. Atypical CP, reproducible upon exam and with cough/body movement. TTE 06/08/17: LVEF 65%, mild LVDD, normal wall motion. No acute ECG changes upon admission (06/08/17); given recent troponin elevation would recommend rechecking now. Recommend ischemic evaluation prior to discharge when clinical status improves-- LHC vs. stress test. Of note, patient request transfer to [facility] given worsening condition--updated primary service. Continue asa, statin, betablocker. (2) Pleuritic chest pain Status: Resolved Plan as above. (3) Multifocal pneumonia Status: Acute Mgmt per primary service. Discussion w patient/family: The assessment and plan as outlined above was discussed with the patient and/or family members who expressed understanding and agreement. All questions were answered. Thank you for involving us in the care of your patient. Please call with any questions. The patient will be discussed and reviewed with Dr. Ba; changes to be made accordingly. History of Present Illness Consult date: 06/12/17 Requesting physician: Martin Matos Consult reason: Elevated troponin Chief complaint: Chest pain, cough History of present illness: Ms. Crow is a 72 year old female with PMHx significant for GERD, HTN, and HLD who presented to the ED with severe midsternal sharp chest pain. Pain worsened with any body movement and cough. She was found to have multilobular PNA. Patient initially admitted on 06/08/17. Cardiology consulted today for elevated troponin. Of note upon presentation, troponin was negative x4. Past Med Surg Social Fam HX - Past Medical History Attestation: Yes The following information was validated with the patient. Source: patient Medical history: GERD, hyperlipidemia, hypertension, osteoporosis, thyroid disease Psychiatric history: no psych history - Past Surgical History Surgical History: no surgical history - Social History Smoking Status: Never smoker Smokeless Tobacco Status: No Alcohol use: none Drug use: none - Family History Mother Adopted: Kidder: SKYLAR Age at : 96 Cause of : AGE Hx Family Cardiac Disorders: No Hx Family Respiratory Disorders: No Hx Family Cancer: Yes (BREAST) Hx Family GI Disorders: No Hx Family Genitourinary Disorders: No Hx Family Endocrine Disorder: No Hx Family Musculoskeletal Disorders: No Hx Family Neuromuscular Disorders: No Hx Family Neurologic Disorders: No Hx Family HEENT Disorders: No Hx Family Autoimmune Disorders: No Hx Family Reproductive Disorders: No Hx Family Psychosocial Disorders: No Hx Family Medical Disorders: No Father Living Status: Hx Family Cancer: Yes Medications and Allergies Calcium Crb,Cit/D3/Min34/Zuleyka [Citracal + Bone Density Tablet] 1 tab PO DAILY 06/08/17 [History] Cholecalciferol (D-3) [Vitamin D] 2,000 unit PO DAILY 06/08/17 [History] Famotidine [Pepcid] 40 mg PO DAILY 06/08/17 [History] Levothyroxine [Synthroid] 50 mcg PO 0630 06/08/17 [History] Metoprolol Succinate [Toprol Xl] 50 mg PO DAILY 06/08/17 [History] Pravastatin Sodium [Pravachol] 20 mg PO HS 06/08/17 [History] Valsartan/Hydrochlorothiazide [Diovan Hct 320-25 mg Tablet] 1 each PO DAILY [History] Vit C/E/Zn/Coppr/Lutein/Zeaxan [Preservision Areds 2 Softgel] 1 tab PO DAILY [History] Vitamin B Complex [B Complex] 1 each PO DAILY 06/08/17 [History] Tramadol HCl [Ultram] 50 mg PO BID PRN 3 Days #6 tab 06/12/17 [Rx] levoFLOXacin [Levaquin] 750 mg PO DAILY #7 tablet 06/12/17 [Rx] 3 Allergy/AdvReac Type Severity Reaction Status Date / Time ibuprofen [From Motrin] Allergy Hives Verified 06/07/17 23:49 All Systems Review: The remainder of the systems were reviewed and are negative - Cardiovascular Cardiovascular: as per HPI Physical Examination Vital Signs, Last 4 Hours Temp Pulse Resp BP Pulse Ox 06/12/17 11:28 16 98 06/12/17 10:42 99.7 F H 80 16 126/73 92 General: Conversant, No Apparent Distress HEENT: Atraumatic, Normocephaly Cardiac: Reg Rate and Rhythm, Normal S1 and S2 Lungs: Other (decreased) Neuro: Alert and responsive Abdomen: Soft Musculoskeletal: Other (chest wall tenderness--reproducible) Extremities: No Edema, Normal Pulses Results 06/12/17 02:15 06/12/17 02:15 Lab Results 06/11/17 06/11/17 06/11/17 11:56 13:40 17:48 WBC 9.3 Hgb 12.1 Hct 36.5 Plt Count 226 APTT Sodium 136 Potassium 4.1 Chloride 107 Carbon Dioxide 22 L BUN 17 Creatinine 0.93 Glucose 126 H Calcium 8.8 Troponin I 0.60 H* 06/12/17 06/12/17 06/12/17 02:15 02:15 02:15 WBC 9.5 Hgb 11.4 L Hct 34.2 L Plt Count 238 APTT 56.7 H D Sodium 137 Potassium 3.7 Chloride 104 Carbon Dioxide 22 L BUN 15 Creatinine 0.90 Glucose 126 H Calcium 9.0 Troponin I 06/12/17 06/12/17 02:15 08:22 WBC Hgb Hct Plt Count APTT 55.6 H Sodium Potassium Chloride Carbon Dioxide BUN Creatinine Glucose Calcium Troponin I 0.28 H* Active Medications Acetaminophen (Tylenol) 650 mg PO Q6HR PRN PRN Reason: Mild Pain/Fever Stop: 12/08/17 05:16 Last Admin: 06/11/17 14:11 Dose: 650 mg Hydrocodone Bitart/Acetaminophen ([place] 5-325 Mg) 1 tab PO Q6HR PRN PRN Reason: Moderate Pain Stop: 12/08/17 05:16 Last Admin: 06/12/17 09:26 Dose: 1 tab Albuterol/Ipratropium (Duoneb) 3 ml IH [id number] [facility] Stop: 12/11/17 20:01 Last Admin: 06/12/17 11:29 Dose: 3 ml Aspirin (Aspirin Ec) 325 mg PO DAILY [facility] Stop: 12/11/17 19:31 Last Admin: 06/12/17 09:26 Dose: 325 mg Famotidine (Pepcid) 20 mg PO DAILY [facility] Stop: 12/08/17 09:01 Last Admin: 06/12/17 09:26 Dose: 20 mg Levofloxacin/Dextrose (Levaquin Premix 750mg/150 Ml) 750 mg in 150 mls @ 100 mls/hr IVPB Q24H BRYANNA PRN Reason: Protocol Stop: 12/09/17 16:01 Last Admin: 06/11/17 17:23 Dose: 100 mls/hr Vancomycin HCl 1,250 mg/ (Sodium Chloride) 250 mls @ 166.67 mls/hr IVPB Q24H BRYANNA Stop: 12/11/17 19:01 Last Admin: 06/11/17 19:45 Dose: 166.67 mls/hr Heparin Sodium/Dextrose (Heparin 25,000 Unit/500 Ml D5w) 25,000 unit in 500 mls @ 20.071 mls/hr IVC .Q24H BRYANNA; 12 UNIT/KG/HR PRN Reason: Protocol Stop: 12/11/17 19:46 Last Titration: 06/12/17 09:49 Dose: 15.75 unit/kg/hr, 26.344 mls/hr Levothyroxine Sodium (Synthroid) 50 mcg PO 0630 BRYANNA Stop: 12/08/17 06:31 Last Admin: 06/12/17 05:29 Dose: 50 mcg Lidocaine HCl (Lidoderm 5% Patch) 1 each TP Q24H BRYANNA Stop: 12/10/17 11:16 Last Admin: 06/11/17 10:57 Dose: 1 each Metoprolol Tartrate (Lopressor) 50 mg PO DAILY BRYANNA Stop: 12/08/17 09:01 Last Admin: 06/12/17 09:26 Dose: 50 mg Naloxone HCl (Narcan) 0.4 mg IVP Q2MIN PRN PRN Reason: SEE COMMENTS Stop: 12/08/17 05:16 Nitroglycerin (Nitroglycerin) 0.4 mg SL Q5MIN PRN PRN Reason: Chest Pain Stop: 12/08/17 00:13 Last Admin: 06/08/17 00:35 Dose: 0.4 mg Ondansetron HCl (Zofran) 4 mg IVP Q6HR PRN; Protocol PRN Reason: Nausea Stop: 12/10/17 11:47 Last Admin: 06/10/17 14:46 Dose: 4 mg Simvastatin (Zocor) 10 mg PO HS BRYANNA Stop: 12/08/17 21:01 Last Admin: 06/11/17 20:03 Dose: Not Given Tramadol HCl (Ultram) 50 mg PO TID PRN PRN Reason: Pain Stop: 12/11/17 16:07 Last Admin: 06/11/17 17:23 Dose: 50 mg - Imaging and Cardiology Echo: report reviewed Other Results: 12 hour tele: avg HR=90 SR. - EKG Interpretation EKG results cardiology: personally reviewed Consult Discharge Plan - Plan Referrals: Genaro Best MD [Primary Care Provider] - Prescriptions: levoFLOXacin [Levaquin] 750 mg PO DAILY #7 tablet Tramadol HCl [Ultram] 50 mg PO BID PRN 3 Days #6 tab PRN Reason: Moderate Pain <Radha Ba - Last Filed: 06/12/17 15:03> Date of Encounter: 06/12/17 - Attending Attestation Consulted today on this pleasant 72 yof with pneumonia with intial negative trops now at .6 and .20. She describes pleuritic chest pain which is new for her. She has not had any exertional CP or KATE prior to her recent pneumonia. Last EF is presevred at 60-65% with no major valvular abnormalities. Despite her atypical chest pain and LVH on EKG I do feel an ischemic work up is reasonable during this admission. If trops conintue to uptrend a C may even be reasonable. Continue Heparin ACS IV protocol and ASA 81 mg daily Assessment and Plan Discussion w patient/family: The assessment and plan as outlined above was discussed with the patient and/or family members who expressed understanding and agreement. All questions were answered. Thank you for involving us in the care of your patient. Please call with any questions. History of Present Illness History of present illness: Ms. Crow is a 72 year old female All Systems Review: The remainder of the systems were reviewed and are negative Physical Examination Vital Signs, Last 4 Hours Resp Pulse Ox 06/12/17 11:28 16 98 Results 06/12/17 02:15 06/12/17 02:15 Lab Results 06/11/17 06/12/17 06/12/17 17:48 02:15 02:15 WBC 9.5 Hgb 11.4 L Hct 34.2 L Plt Count 238 APTT Sodium 137 Potassium 3.7 Chloride 104 Carbon Dioxide 22 L BUN 15 Creatinine 0.90 Glucose 126 H Calcium 9.0 Troponin I 0.60 H* 06/12/17 06/12/17 06/12/17 02:15 02:15 08:22 WBC Hgb Hct Plt Count APTT 56.7 H D 55.6 H Sodium Potassium Chloride Carbon Dioxide BUN Creatinine Glucose Calcium Troponin I 0.28 H*
--- NOTE | 2017-06-12 11:44 | Discharge Summary ---
- NOTES TO OUTPATIENT PROVIDER Notes to Outpatient Provider: Pt declined further testing and decided to sign out AMA and go to [facility] for treatment. Orders not resulted at time of discharge: Pending orders 06/12/17 15:50 PTT [Activated Partial Thrombo Time] [COAG] Stat 06/13/17 18:00 Vancomycin,Trough Timed Date of Encounter: 06/12/17 Time of Encounter: 11:35 - Discharge Diagnosis (1) Anemia Priority: Primary Status: Resolved Comments: Hgb 11.4. STable throughout stay. Qualifiers: Anemia type: unspecified type Qualified Code(s): D64.9 - Anemia, unspecified (2) Hypokalemia Priority: Secondary Status: Resolved (3) Multifocal pneumonia Priority: Secondary Status: Acute Comments: Community-acquired pneumonia. CT chest revealed multifocal pneumonia. Being treated with the Levaquin 750 mg IV daily and will restart vancomycin 1 g daily due to worsening chest x-ray results. Blood cultures are negative. Patient has no leukocytosis, tachycardia, fever. Patient did report left anterior inferior rib pain after her echocardiogram. 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 Pain did not improve over the course of the day despite po pain medication and lidoderm patch, repeat chest x-ray was performed, showed worsening aeration in lung bases with small pleural effusion. Findings likely reflect pulmonary edema versus pneumonia. There is no osseous abnormality seen. Findings have worsened from 3 days ago. Pt was getting Duonebs as well as IV abx and incentive spirometry was encouraged. She was unable to be weaned from 02 and she was wearing 2-4 liters continuously. Pt states that since she is not getting any better, she wants to go to [facility] for continued treatment. Discussed case with admitting physician who agrees with treatment plan, pt will sign out AMA. Chest CTA 06/08/17 00:12 IMPRESSION: No acute thoracic or abdominal aortic aneurysm or dissection is identified. Multifocal infiltrates are seen within the lungs, predominantly involving the right middle lobe, lingula and bilateral lower lobes concerning for pneumonia or aspiration. No reactive effusion. No lung mass or mediastinal lymphadenopathy. No acute fracture seen in the thoracic or lumbar spine. Multilevel degenerative changes. No acute process seen in the abdomen or pelvis. Small bowel feces sign seen in the distal ileum which may be related to delayed transit. No ileus or obstruction. D/ / Ravin Tirado MD / Ravin Tirado MD Interpreting Provider: Raivn Tirado MD Echocardiogram 06/08/17 05:15 Impressions: LVEF 65%. Mild left ventricular diastolic dysfunction. Normal right ventricular structure and function. Trivial aortic regurgitation - signal may not be well obtained on this study (TTE 11/12/13 - mild to moderate aortic regurgitation). No pulmonary hypertension. Left Ventricular Wall Motion: Rest Echo Findings All wall segments showed normal motion. Findings: Study Quality * Technically adequate exam. ECG Findings * Normal sinus rhythm. Left Ventricle * LVEF 65%. * Mild left ventricular diastolic dysfunction. * LV wall thickness measurements not well obtained. Right Ventricle * Normal right ventricular structure and function. Left Atrium * Normal left atrial size. Right Atrium * Normal right atrial size. Aortic Valve * Trileaflet aortic valve. * No aortic stenosis. * Trace aortic regurgitation. Mitral Valve * No mitral regurgitation. * Normal mitral valve structure. * No mitral stenosis. Tricuspid Valve * Tricuspid valve not well visualized. * No tricuspid regurgitation. Pulmonic Valve * Pulmonic valve is not well visualized. * No pulmonic stenosis. * No pulmonic regurgitation. Pulmonary Artery * Pulmonary artery not well visualized. Aorta * Normally sized aortic root. Interatrial Septum * Interatrial septum not well evaluated. Pericardium * There is no pericardial effusion present. IVC * The IVC is not well evaluated. Chest X-Ray 06/11/17 16:10 IMPRESSION: Worsening aeration lung bases with small pleural effusions. Findings likely reflect pulmonary edema versus pneumonia. D/ / 06/11/2017 17:04:58 Jason Moore MD / sandoval Interpreting Provider: Jason Moore MD (4) Pleuritic chest pain Priority: Secondary Status: Resolved Comments: initial chest pain resolved with po and lidoderm patch. Pt then began having left anterior rib pain after her echo. No noted bruising, but area was tender to palpation. Repeat chest xray completed, showed worsening aeration with small pleural effusions. Pt was given Tramadol for pain as well as lidoderm patch. Incentive spirometry was given to pt, encouraged 6x/hour. Discussed treatment plan with admitting physician, agrees with treatment plan. (5) DVT prophylaxis Priority: Secondary Status: Acute Comments: Heparin SQ twice daily. (6) Elevated troponin Priority: Secondary Status: Acute Comments: Patient began having left anterior inferior rib pain after echocardiogram. The area was tender to palpation, no obvious deformity or injury. Repeat chest x- ray was completed, troponin was ordered. Chest x-ray results below. Troponin 0.60 and nocturnal chest started patient on heparin drip. She was evaluated by cardiology who recommended stress test, patient refuses stress test or any other testing. Subsequent troponin was 0.28. Most likely due to demand ischemia from pneumonia. Patient signed out AMA. Abdomen/Pelvis CTA 06/08/17 00:12 IMPRESSION: No acute thoracic or abdominal aortic aneurysm or dissection is identified. Multifocal infiltrates are seen within the lungs, predominantly involving the right middle lobe, lingula and bilateral lower lobes concerning for pneumonia or aspiration. No reactive effusion. No lung mass or mediastinal lymphadenopathy. No acute fracture seen in the thoracic or lumbar spine. Multilevel degenerative changes. No acute process seen in the abdomen or pelvis. Small bowel feces sign seen in the distal ileum which may be related to delayed transit. No ileus or obstruction. D/ / Ravin Tirado MD / Ravin Tirado MD Interpreting Provider: Ravin Tirado MD Chest CTA 06/08/17 00:12 IMPRESSION: No acute thoracic or abdominal aortic aneurysm or dissection is identified. Multifocal infiltrates are seen within the lungs, predominantly involving the right middle lobe, lingula and bilateral lower lobes concerning for pneumonia or aspiration. No reactive effusion. No lung mass or mediastinal lymphadenopathy. No acute fracture seen in the thoracic or lumbar spine. Multilevel degenerative changes. No acute process seen in the abdomen or pelvis. Small bowel feces sign seen in the distal ileum which may be related to delayed transit. No ileus or obstruction. D/ / Ravin Tirado MD / Ravin Tirado MD Interpreting Provider: Ravin Tirado MD Echocardiogram 06/08/17 05:15 Impressions: LVEF 65%. Mild left ventricular diastolic dysfunction. Normal right ventricular structure and function. Trivial aortic regurgitation - signal may not be well obtained on this study (TTE 11/12/13 - mild to moderate aortic regurgitation). No pulmonary hypertension. Left Ventricular Wall Motion: Rest Echo Findings All wall segments showed normal motion. Findings: Study Quality * Technically adequate exam. ECG Findings * Normal sinus rhythm. Left Ventricle * LVEF 65%. * Mild left ventricular diastolic dysfunction. * LV wall thickness measurements not well obtained. Right Ventricle * Normal right ventricular structure and function. Left Atrium * Normal left atrial size. Right Atrium * Normal right atrial size. Aortic Valve * Trileaflet aortic valve. * No aortic stenosis. * Trace aortic regurgitation. Mitral Valve * No mitral regurgitation. * Normal mitral valve structure. * No mitral stenosis. Tricuspid Valve * Tricuspid valve not well visualized. * No tricuspid regurgitation. Pulmonic Valve * Pulmonic valve is not well visualized. * No pulmonic stenosis. * No pulmonic regurgitation. Pulmonary Artery * Pulmonary artery not well visualized. Aorta * Normally sized aortic root. Interatrial Septum * Interatrial septum not well evaluated. Pericardium * There is no pericardial effusion present. IVC * The IVC is not well evaluated. Chest X-Ray 06/11/17 16:10 IMPRESSION: Worsening aeration lung bases with small pleural effusions. Findings likely reflect pulmonary edema versus pneumonia. D/ / 06/11/2017 17:04:58 Jason Moore MD / sandoval Interpreting Provider: Jason Moore MD Hospital course: Ms. Crow is a 72 year old female who presented to the emergency department after not feeling well for 7 days, weakness and flulike symptoms. Patient diagnosed with multifocal pneumonia. She had pleuritic chest pain and posterior chest which was relieved with Lidoderm patches and by mouth pain medication. Patient had an echocardiogram, which showed preserved ejection fraction, normal wall motion, no significant valvular dysfunction. Patient reports that after the echocardiogram she had left anterior inferior rib pain that is tender to palpation, made her heart for her to take deep breaths. Repeat chest x-ray was done at that time which showed worsening aeration, small pleural effusions versus pneumonia. Patient also had an elevated troponin, 0.6 , declined to 0.2. This is most likely due to demand ischemia from pneumonia. We attempted to treat patient's anterior chest pain with Lidoderm patches and by mouth tramadol. Patient reports that this was not adequate pain control. Cardiology was consult it for the elevated troponin and recommended that she have a stress test, patient declined any further treatment and stasis that she is not getting better she wants to sign out AGAINST MEDICAL ADVICE and go to [facility]. She was told that she would have to sign out AGAINST MEDICAL ADVICE and start over in the emergency department. Patient was made aware of her worsening pneumonia and elevated troponin and her need to stay for continued treatment. She declined. She was again encouraged to complete the stress test, patient declined and said she was in too much pain. I explained the procedure to her that she did not have to be on a treadmill or move. She continued to decline. I also discussed with her that she would have to go through the emergency department wherever she went and that she would not be given a room immediately on arrival. The patient continued to decline. 2 family members in the room with her were encouraging her to leave, as well. She was given prescriptions for tramadol and Levaquin 750 mg by mouth. Patient signed out AGAINST MEDICAL ADVICE. - Time Spent with Patient Total time spent providing and/or coordinating discharge services: Less than 30 minutes - Discharge Medications Prescriptions: levoFLOXacin [Levaquin] 750 mg PO DAILY #7 tablet Tramadol HCl [Ultram] 50 mg PO BID PRN 3 Days #6 tab PRN Reason: Moderate Pain Home Medications: Calcium Crb,Cit/D3/Min34/Zuleyka [Citracal + Bone Density Tablet] 1 tab PO DAILY 06/08/17 [History] Cholecalciferol (D-3) [Vitamin D] 2,000 unit PO DAILY 06/08/17 [History] Famotidine [Pepcid] 40 mg PO DAILY 06/08/17 [History] Levothyroxine [Synthroid] 50 mcg PO 0630 06/08/17 [History] Metoprolol Succinate [Toprol Xl] 50 mg PO DAILY 06/08/17 [History] Pravastatin Sodium [Pravachol] 20 mg PO HS 06/08/17 [History] Valsartan/Hydrochlorothiazide [Diovan Hct 320-25 mg Tablet] 1 each PO DAILY [History] Vit C/E/Zn/Coppr/Lutein/Zeaxan [Preservision Areds 2 Softgel] 1 tab PO DAILY [History] Vitamin B Complex [B Complex] 1 each PO DAILY 06/08/17 [History] Tramadol HCl [Ultram] 50 mg PO BID PRN 3 Days #6 tab 06/12/17 [Rx] levoFLOXacin [Levaquin] 750 mg PO DAILY #7 tablet 06/12/17 [Rx] Allergies/Adverse Reactions: 3 Allergy/AdvReac Type Severity Reaction Status Date / Time ibuprofen [From Motrin] Allergy Hives Verified 06/07/17 23:49 Date of admission: 06/08/17 05:15 Primary care physician: Genaro Best MD Consults: 06/11/17 19:36 Consult to Cardiology [CONS] Routine Comment: Consulting Provider: [facility] [place] Reason for Consult: Patient admitted for pneumonia and chest pain had previous negative troponins <0.03. Troponin today 0.60. Pt. reports pain under left breast w/radiation to left axilla. Aspirin 325 mg and Lipitor 80 mg STAT ordered. Low- dose heparin drip ordered. No RI hx but risk factors of HLD and HTN. Call Completed: Yes Discharging clinician: Jaky Tamayo Anticipated date of discharge: 06/12/17 - Constitutional Vitals: Temp Pulse Resp BP Pulse Ox 99.7 F H 80 16 126/73 98 06/12/17 10:42 06/12/17 10:42 06/12/17 11:28 06/12/17 10:42 06/12/17 11:28 General appearance: Present: mild distress (due to pleurisy; splinting), A&O X 3 , no acute distress, answers questions appropriately - Head Head exam: Present: atraumatic, normal inspection, normocephalic - Eye Eye exam: Present: conjuntiva pink, sclera anicteric - Neck Neck exam general surgery: Present: supple, trachea midline. Absent: lymphadenopathy, tenderness - Respiratory Respiratory exam: Present: chest wall tenderness, CTAB. Absent: accessory muscle use, rales, respiratory distress, rhonchi, wheezes Additional comments: Chest wall tenderness noted to left anterior inferior ribs. Patient is taking very small breaths is unable/unwilling to take normal breath. - Cardiovascular Cardiovascular exam: Present: RRR, +S1, +S2. Absent: diastolic murmur, gallop, rubs, systolic murmur - GI/Abdominal GI/Abdominal exam: Present: normal bowel sounds, soft. Absent: distended, hepatomegaly, tenderness - Extremities Exam Extremities exam: Present: normal capillary refill, normal inspection, warm, radial pulses palpable and symmetrical. Absent: calf tenderness, cyanotic, pedal edema, tenderness - Neurological Exam Neurological exam: Present: alert, oriented X3, no focal deficits. Absent: facial droop, speech deficit - Skin Skin exam: Present: dry, intact, normal color, warm. Absent: rash - Patient Status Disposition: Left Against Medical Advice Condition: Fair Functional capacity at discharge: wheelchair bound Overall status at discharge: patient is not back to baseline - Discharge Instructions Follow Up With: Genaro Best MD [Primary Care Provider] -
[2017-06-12] MEDS ORDERED: Aminoglycoside Consult 1 EACH MC ONE (12:31)
== END 2017-06-12 12:32 | disposition left against medical advice (07) | DRG 195 ==
LOC: 3BNU 23:41 → EMEROO 23:41 → 3BNU 06-08 03:44
PROVIDERS: ADMIT Internal Medicine; ATTEND Registered Nurse